=== PATIENT | male | born 1990 | race African-American/Black ===

== ENCOUNTER 2019-01-10 21:36 | Emergency (ER) | payer OTHER ==
[~2019-01-10] VITALS: Ht 182.9 cm; Wt 80.3 kg
--- NOTE | 2019-01-10 21:36 | NUR ---
TO ER BED 18 AMBULATORY C/O L TESTICULAR PAIN AND SWELLING SINCE TUESDAY. PT AAOX4 NO ACUTE DISTRESS NOTED, RESP EVEN AND UNLABORED. PENDING ER MD DONAHUE.
--- NOTE | 2019-01-10 22:00 | NUR ---
URINE SAMPLE COLLECTED AND SENT TO LAB
[2019-01-10] MEDS ORDERED: IBUPROFEN 600 MG TABLET PO ONE (22:23)
[2019-01-10 22:36] LABS: APPEARANCE,URINE Clear (CLEAR); BILIRUBIN,URINE Negative (NEGATIVE); BLOOD, URINE Negative Ery/uL (NEGATIVE); COLOR,URINE Yellow (YELLOW); KETONES,URINE 15 (NEGATIVE); LEUKOCYTE ESTERASE ,URINE Trace (NEGATIVE); NITRITE, URINE Negative (NEGATIVE); PH,URINE 6.5 (5.0-8.0); PROTEIN,URINE Negative (NEGATIVE); UGLUCOSE Negative (NEGATIVE); UROBILINOGEN,URINE 0.2 EU/dL (0.2)
[2019-01-10] MEDS: IBUPROFEN 600 MG TABLET PO ONE (22:38)
[2019-01-10] MEDS ORDERED: LIDOCAINE /MPF 1% VIAL 5 ML VIAL ONE (22:40)
[2019-01-10] MEDS ORDERED: CEFTRIAXONE 500 MG VIAL ONE (22:40)
[2019-01-10] MEDS ORDERED: AZITHROMYCIN 250 MG TABLET ONE (22:40)
[2019-01-10] MEDS: CEFTRIAXONE 500 MG VIAL IM ONE (22:49)
[2019-01-10] MEDS: AZITHROMYCIN 250 MG TABLET PO ONE (22:49)
[2019-01-10 23:17] LABS: RBC,URINE 0-2 /HPF (0-2); WBC,URINE 51-80 /HPF (0-3)
[2019-01-10 23:18] LABS: BACTERIA,URINE Few /HPF (None Seen); SQUAMOUS EPITHELIAL CELL,UR Rare /HPF (None Seen)
[2019-01-10 23:38] VITALS: BP 121/70
--- NOTE | 2019-01-10 23:38 | NUR ---
Patient discharged to home in stable condition. Written and verbal after care instructions given. Patient verbalizes understanding of instruction. Pt ambulatory with a steady gait
== END 2019-01-10 23:39 | disposition home or self-care (01) ==
LOC: ER 21:45
DX: N45.1 Epididymitis (principal); N39.0 Urinary tract infection, site not specified
CPT/HCPCS: 76870; 81001; 87086; 87491; 87591; 96372; 99284; J0696; J3490; 81000-TC